=== PATIENT | female | born 1945 | race Caucasian/White ===

== ENCOUNTER 2019-02-20 05:50 | Inpatient (IN) | payer MEDICARE, MEDICAID ==
[~2019-02-20] VITALS: Ht 167.6 cm; Wt 59.1 kg
[2019-02-20] MEDS ORDERED: methylPREDNISolone sod succ 125mg/2ml vial IV ONE ×2 (06:05→14:20)
[2019-02-20] MEDS ORDERED: ipratropium/albuterol 3ml nebule NEB ONE (06:05)
[2019-02-20 06:43] LABS: BASOPHILS # (AUTO) 0.1 X10'3 (0-0.2); EOSINOPHILS # (AUTO) 0.2 X10'3 (0-0.9); EOSINOPHILS % (AUTO) 1.2 % (0-6); HEMATOCRIT 38.7 % (35.0-45.0); HEMOGLOBIN 12.7 g/dl (12.0-16.0); LYMPHOCYTES # (AUTO) 2.2 X10'3 (1.1-4.8); LYMPHOCYTES % (AUTO) 15.5 % (21-51); MEAN CORPUSCULAR HEMOGLOBIN 28.4 PG (27.0-31.0); MEAN CORPUSCULAR HGB CONC 32.8 g/dL (33.0-36.5); MEAN CORPUSCULAR VOLUME 86.6 FL (78-98); MEAN PLATELET VOLUME 7.8 FL (7.4-10.4); MONOCYTES # (AUTO) 0.9 X10'3 (0-0.9); MONOCYTES % (AUTO) 6.5 % (2-12); NEUTROPHILS # (AUTO) 10.6 X10'3 (1.8-7.7); NEUTROPHILS % (AUTO) 75.8 % (42-75); PLATELET COUNT 398 X10'3 (140-440); RED BLOOD COUNT 4.47 X10'6 (4.20-5.60); RED CELL DISTRIBUTION WIDTH 15.4 % (11.5-14.5); WHITE BLOOD COUNT 13.9 X10'3 (4.5-11.0)
[2019-02-20 06:46] LABS: ABG HCO3 27.5 mmol/L (22.0-26.0); ABG OXYGEN SATURATION 91.7 % (95-98); ABG PCO2 (T) 41.5 mmHg (35.0-45.0); ABG PH (T) 7.439 (7.350-7.450); ABG PO2 (T) 61.3 mmHg (83-108); ALLEN'S TEST Positive; FCOHb 2.1 % (0.5-1.5); FMetHb 0.1 % (0.3-1.12); FO2Hb 89.7 % (94-100); RESPIRATORY RATE (OBSERVED) 20 b/min; TOTAL HEMOGLOBIN 13.1 G/dl (12.0-16.0)
[2019-02-20] MEDS ORDERED: normal saline 1000ML IV soln IVB ONE (06:50)
[2019-02-20] MEDS ORDERED: CefTRIAXone/D5W-Rocephin 1gm 50 ML IV ONE (06:50)
[2019-02-20] MEDS ORDERED: azithromycin/NS 500mg/250ml 250 ML IV ONE (06:50)
[2019-02-20 07:08] LABS: ALANINE AMINOTRANSFERASE 18 U/L (12-78); ALBUMIN 2.7 G/DL (3.4-5.0); ALBUMIN/GLOBULIN RATIO 0.6 (1.1-1.5); ALKALINE PHOSPHATASE 71 IU/L (46-116); ANION GAP 8 (8-16); ASPARTATE AMINO TRANSFERASE 16 U/L (10-37); BILIRUBIN,TOTAL 0.3 MG/DL (0.1-1.0); BLOOD UREA NITROGEN 10 MG/DL (7-18); BUN/CREATININE RATIO 11.2 (6.6-38.0); CALCIUM 9.1 MG/DL (8.5-10.1); CHLORIDE 104 MMOL/L (99-107); CREATININE 0.89 MG/DL (0.40-0.90); GLUCOSE 111 MG/DL (70-104); MAGNESIUM 1.8 MG/DL (1.5-2.4); SODIUM 144 MMOL/L (135-145); TOTAL CARBON DIOXIDE 32.1 MMOL/L (24-32); TOTAL PROTEIN 7.1 G/DL (6.4-8.2); eGFR 62 ML/MIN
[2019-02-20 07:10] LABS: POTASSIUM 2.9 MMOL/L (3.5-5.1)
[2019-02-20] MEDS ORDERED: potassium Cl 20 mEq SR tablet PO ONE (07:15)
[2019-02-20] MEDS ORDERED: metoclopramide 5 mg/ml inj IV PRN (07:25)
[2019-02-20] MEDS ORDERED: potassium Cl 20 mEq SR tablet PO PRN (07:25)
[2019-02-20] MEDS ORDERED: bisacodyl 10mg suppository rectal RC PRN (07:25)
[2019-02-20] MEDS ORDERED: magnesium hydroxide 30ml (MOM) UD suspension PO PRN (07:25)
[2019-02-20] MEDS ORDERED: acetaminophen 325mg tablet PO PRN ×2 (07:25)
[2019-02-20] MEDS ORDERED: mag hydrox/Alum hydrox/simeth 30ml oral suspension PO PRN (07:25)
[2019-02-20] MEDS ORDERED: ondansetron/PF 4mg/2ml inj IV PRN (07:25)
[2019-02-20] MEDS ORDERED: ipratropium/albuterol 3ml nebule NEB PRN (07:25)
[2019-02-20] MEDS ORDERED: HYDROcodone/acetaminophen 10/325mg tab PO PRN (07:25)
[2019-02-20] MEDS ORDERED: magnesium Cl slow-release 64mg tablet PO PRN (07:25)
[2019-02-20] MEDS ORDERED: magnesium 2GM in 50ml NS 50 ML IV PRN (07:25)
[2019-02-20] MEDS ORDERED: HYDROcodone/acetaminophen 5mg/325mg tablet PO PRN (07:25)
[2019-02-20] MEDS ORDERED: potassium CL 10mEq/100ml bag 100 ML IV PRN ×2 (07:25)
[2019-02-20] MEDS ORDERED: magnesium 4gm in 100ml NS 100 ML IV PRN (07:25)
[2019-02-20] MEDS ORDERED: MELO-100 PO (07:57)
[2019-02-20] MEDS ORDERED: PROP20TA6 PO (07:57)
[2019-02-20] MEDS ORDERED: SERT50TA10 PO (07:57)
[2019-02-20] MEDS ORDERED: DONE10TA44 PO (07:57)
[2019-02-20] MEDS: methylPREDNISolone sod succ 125mg/2ml vial IV SCH ×3 (08:00→19:58)
[2019-02-20] MEDS ORDERED: CefTRIAXone/D5W-Rocephin 1gm 50 ML IV SCH (08:00)
[2019-02-20] MEDS ORDERED: MEMA10TA21 PO (08:04)
[2019-02-20] MEDS ORDERED: BUDE10.2 IH (08:04)
[2019-02-20] MEDS ORDERED: ALBU18HF2 INH (08:04)
[2019-02-20] MEDS ORDERED: GABA-530 PO (08:10)
[2019-02-20] MEDS: normal saline 1000ml 1,000 ML IV SCH ×2 (08:29→20:00)
[2019-02-20] MEDS: enoxaparin 40mg/0.4ml syringe SUBCUT SCH (08:30)
[2019-02-20] MEDS: K and/or MAG REPLACEMENT MC SCH (08:40)
[2019-02-20] MEDS ORDERED: iohexol 350MG/ML 100ml bottle IV ONE (08:40)
--- NOTE | 2019-02-20 09:13 | NUR ---
REPORT TO GRACE PELLETIER ON SURGICAL UNIT.
[2019-02-20 10:02] VITALS: BP 150/64
[2019-02-20 11:07] LABS: PHOSPHORUS 3.2 MG/DL (2.3-4.5)
--- NOTE | 2019-02-20 11:24 | NUR ---
Unable to dart patient at this time, she cannot remember some information. Patient admitted having dementia/alzheimers. Attempted to contact the patient's son on the home phone listed, no answer.
[2019-02-20] MEDS: ipratropium/albuterol 3ml nebule NEB SCH ×2 (11:40→14:52)
[2019-02-20] MEDS: potassium Cl 20 mEq SR tablet PO PRN ×2 (14:47→19:58)
--- NOTE | 2019-02-20 18:49 | NUR ---
Problems reprioritized. Patient report given, questions answered & plan of care reviewed with Mrecedes EDWARDS.
[2019-02-20] MEDS: propranolol 10mg tablet PO SCH (19:58)
[2019-02-20 20:00] VITALS: BP 147/62
[2019-02-20] MEDS ORDERED: non-formulary drug (Propranolol Hcl 1 TAB) PO SCH (20:00)
[2019-02-20] MEDS ORDERED: non-formulary drug (Budesonide/Formoterol Fumarate (Symbicort 160-4.5 Mcg Inhaler) 1 PUFF) IH SCH (20:00)
[2019-02-20] MEDS: budesonide 0.5mg/2ml UD nebule IH SCH (20:22)
[2019-02-20] MEDS: albuterol 2.5 MG/3 ML nebule NEB SCH (20:22)
[2019-02-20] MEDS ORDERED: temazepam 15mg capsule PO PRN (21:00)
--- NOTE | 2019-02-20 22:12 | NUR ---
Patient in room [facility]. I have received report from GRACE Grande and had the opportunity to ask questions and assume patient care. Addendum: 02/20/19 at 2213 by Mercedes May RN Amended: Links added.
[2019-02-21 00:02] VITALS: BP 131/71
[2019-02-21] MEDS: methylPREDNISolone sod succ 125mg/2ml vial IV SCH ×2 (01:36→07:22)
[2019-02-21] MEDS: albuterol 2.5 MG/3 ML nebule NEB SCH ×2 (03:31→07:38)
[2019-02-21 06:30] VITALS: BP 130/75
--- NOTE | 2019-02-21 06:30 | NUR ---
Patient in room [facility]. I have received report from GRACE Long and had the opportunity to ask questions and assume patient care.
[2019-02-21 06:34] LABS: BASOPHILS % (AUTO) 0.3 % (0-1); EOSINOPHILS % (AUTO) 0 % (0-6); HEMATOCRIT 34.5 % (35.0-45.0); LYMPHOCYTES # (AUTO) 0.8 X10'3 (1.1-4.8); LYMPHOCYTES % (AUTO) 5.9 % (21-51); MEAN CORPUSCULAR HEMOGLOBIN 28.1 PG (27.0-31.0); MEAN CORPUSCULAR HGB CONC 31.8 g/dL (33.0-36.5); MEAN CORPUSCULAR VOLUME 88.2 FL (78-98); MEAN PLATELET VOLUME 8.4 FL (7.4-10.4); MONOCYTES # (AUTO) 0.2 X10'3 (0-0.9); MONOCYTES % (AUTO) 1.8 % (2-12); NEUTROPHILS # (AUTO) 12.6 X10'3 (1.8-7.7); PLATELET COUNT 350 X10'3 (140-440); RED BLOOD COUNT 3.91 X10'6 (4.20-5.60); RED CELL DISTRIBUTION WIDTH 15.4 % (11.5-14.5); WHITE BLOOD COUNT 13.7 X10'3 (4.5-11.0)
--- NOTE | 2019-02-21 06:35 | NUR ---
Problems reprioritized. Patient report given, questions answered & plan of care reviewed with GRACE Brody. Addendum: 02/21/19 at 0636 by Mercedes May RN Amended: Links added.
[2019-02-21 06:41] LABS: ALBUMIN 2.5 G/DL (3.4-5.0); ANION GAP 7 (8-16); BLOOD UREA NITROGEN 13 MG/DL (7-18); BUN/CREATININE RATIO 18.8 (6.6-38.0); CHLORIDE 107 MMOL/L (99-107); CREATININE 0.69 MG/DL (0.40-0.90); GLUCOSE 125 MG/DL (70-104); MAGNESIUM 1.8 MG/DL (1.5-2.4); POTASSIUM 4.8 MMOL/L (3.5-5.1); SODIUM 141 MMOL/L (135-145); TOTAL CARBON DIOXIDE 27.3 MMOL/L (24-32); eGFR 83 ML/MIN
[2019-02-21] MEDS: K and/or MAG REPLACEMENT MC SCH (06:54)
[2019-02-21] MEDS: propranolol 10mg tablet PO SCH (07:23)
[2019-02-21] MEDS: enoxaparin 40mg/0.4ml syringe SUBCUT SCH (07:24)
[2019-02-21] MEDS: budesonide 0.5mg/2ml UD nebule IH SCH (07:38)
[2019-02-21] MEDS ORDERED: azithromycin/NS 500mg/250ml 250 ML IV SCH (08:00)
[2019-02-21] MEDS ORDERED: sertraline 50mg tablet PO SCH (08:00)
[2019-02-21] MEDS ORDERED: CefTRIAXone/D5W-Rocephin 1gm 50 ML IV SCH (08:00)
[2019-02-21] MEDS ORDERED: donepezil 5mg tablet PO SCH (08:00)
[2019-02-21] MEDS ORDERED: memantine 5mg tablet PO SCH (08:00)
[2019-02-21] MEDS ORDERED: gabapentin 100mg capsule PO SCH (08:00)
[2019-02-21] MEDS ORDERED: MEMANTINE HCL PO SCH (08:00)
[2019-02-21] MEDS ORDERED: iohexol 300mg/ml 100ml inj. ONE (09:18)
[2019-02-21] MEDS ORDERED: BUDE10.2 INH (10:51)
[2019-02-21] MEDS ORDERED: LEVO500T2 PO (10:51)
[2019-02-21] MEDS ORDERED: ALBU18HF2 INH (10:51)
[2019-02-21] MEDS ORDERED: ALPR-623 PO (10:51)
--- NOTE | 2019-02-21 11:45 | NUR ---
DC inst provided to pt & son. IV DC'd, tip intact. All belongings sent w/pt. WC to front lobby.
== END 2019-02-21 11:43 | disposition home or self-care (01) | DRG 180 ==
LOC: ER 05:51 → SUR 3N 09:35
PROVIDERS: ADMIT Family Medicine; ATTEND Family Medicine
PROC: B32T1ZZ Computerized Tomography (CT Scan) of Left Pulmonary Artery using Low Osmolar Contrast (ICD-10-PCS; principal; 2019-02-20)
PROC: B3201ZZ Computerized Tomography (CT Scan) of Thoracic Aorta using Low Osmolar Contrast (ICD-10-PCS; 2019-02-20)
PROC: B32S1ZZ Computerized Tomography (CT Scan) of Right Pulmonary Artery using Low Osmolar Contrast (ICD-10-PCS; 2019-02-20)
DX: C34.11 Malignant neoplasm of upper lobe, right bronchus or lung (principal); J18.9 Pneumonia, unspecified organism; J96.01 Acute respiratory failure with hypoxia; E43 Unspecified severe protein-calorie malnutrition; J44.1 Chronic obstructive pulmonary disease with (acute) exacerbation; J44.0 Chronic obstructive pulmonary disease with (acute) lower respiratory infection; E87.6 Hypokalemia; D64.9 Anemia, unspecified; F17.210 Nicotine dependence, cigarettes, uncomplicated; F02.80 Dementia in other diseases classified elsewhere, unspecified severity, without behavioral disturbance, psychotic disturbance, mood disturbance, and anxiety; Z60.2 Problems related to living alone; F32.9 Major depressive disorder, single episode, unspecified; F12.90 Cannabis use, unspecified, uncomplicated; R59.9 Enlarged lymph nodes, unspecified; G30.9 Alzheimer's disease, unspecified; I10 Essential (primary) hypertension; Z68.21 Body mass index [BMI] 21.0-21.9, adult; Z85.3 Personal history of malignant neoplasm of breast; Z90.11 Acquired absence of right breast and nipple; Z90.710 Acquired absence of both cervix and uterus; Z88.8 Allergy status to other drugs, medicaments and biological substances
CPT/HCPCS: 36415; 36600; 70470; 71045; 71275; 80048; 80053; 82803; 83605; 83735; 83880; 84100; 84145; 84484; 85018; 85025; 87040; 87070; 87081; 93005; 94640; 94760; 96365; 96368; 96375; 99285; G0378; J0456; J0696; J1650; J2930; J7030; J7626; Q9967